=== PATIENT | male | born 1975 | race Caucasian/White ===

== ENCOUNTER 2019-01-04 08:17 | Observation (INO) | payer OTHER ==
[2019-01-01 09:49] VITALS: BMI 17.4
[2019-01-04 09:36] LABS: Hemoglobin 16.3 g/dL (14.0-18.0); Mean Corpuscular HGB CONC 34.1 g/dL (32.0-36.0); Mean Corpuscular Hemoglobin 30.7 pg (27.0-31.0); Mean Corpuscular Volume 89.9 fL (78.0-98.0); Mean Platelet Volume 6.2 fL (7.4-10.4); Platelet Count 317 thou/uL (130-400); RBC Distribution Width 12.2 % (11.5-14.5); Red Blood Cell (RBC) Count 5.31 mill/uL (4.70-6.10); White Blood Cell (WBC) Count 6.1 thou/uL (4.8-10.8)
[2019-01-04 09:55] LABS: Anion Gap 13 mmol/L (10-20); BUN (Urea Nitrogen) 16 mg/dL (8.9-20.6); Calc. Creatinine Clearance 72 mL/min (70-130); Calcium 9.5 mg/dL (7.8-10.44); Carbon Dioxide 27 mmol/L (22-29); Chloride 105 mmol/L (98-107); Estimated GFR-MDRD Greater than 90; Glucose 76 mg/dL (70-105); Potassium 3.6 mmol/L (3.5-5.1); Sodium 141 mmol/L (136-145)
[2019-01-04] MEDS ORDERED: Sodium Chloride 0.9% 10 ML ONE (11:09)
[2019-01-04] MEDS ORDERED: Fentanyl 100 MCG/2 ML VIAL ONE ×4 (11:09→14:06)
[2019-01-04] MEDS ORDERED: Promethazine HCl 25 MG/ML VIAL IM PRN ×2 (13:09→15:20)
[2019-01-04] MEDS ORDERED: Ondansetron HCl/PF 4 MG/2 ML Vial IVP PRN (13:09)
[2019-01-04] MEDS ORDERED: traMADol HCl 50 MG TAB PO PRN (15:20)
[2019-01-04] MEDS ORDERED: diphenhydrAMINE 25 MG CAP PO PRN (15:20)
[2019-01-04] MEDS ORDERED: diphenhydrAMINE 50 MG/ML VIAL IVP PRN (15:20)
[2019-01-04] MEDS ORDERED: HYDROcodone/Acetaminophen 10/325 mg Tablet PO PRN ×2 (15:20)
[2019-01-04] MEDS ORDERED: tiZANidine HCl 4 MG TAB PO PRN (15:20)
[2019-01-04] MEDS ORDERED: Promethazine HCl 12.5 MG SUPP PR PRN (15:20)
[2019-01-04] MEDS ORDERED: Ondansetron PF 4 MG/2 ML Vial IVP PRN (15:20)
[2019-01-04] MEDS ORDERED: Promethazine 25 MG TAB PO PRN (15:20)
[2019-01-04] MEDS ORDERED: Mag-Al 1200 mg/1200 mg/30 ML UDCUP PO PRN (15:20)
[2019-01-04] MEDS ORDERED: Morphine 4 MG/ML VIAL SLOW IVP PRN (15:20)
[2019-01-04] MEDS ORDERED: Milk Of Magnesia 30 ML UDCUP PO PRN (15:20)
[2019-01-04] MEDS ORDERED: Morphine 2 MG/ML SYRINGE SLOW IVP PRN (15:21)
[2019-01-04] MEDS: Sodium Chloride 0.9% 1,000 ML IV SCH (15:50)
--- NOTE | 2019-01-04 15:53 | OP ---
DATE OF PROCEDURE: 01/04/2019 TEACHER'S ASSISTANT: Camilla Pierce PA-C PROCEDURES PERFORMED: Anterior cervical diskectomy C4-C5 and C5-C6, interbody arthrodesis, intervertebral biomechanical device, local morselized autograft, demineralized bone matrix, anterior titanium instrumentation C4 to C6. DESCRIPTION OF PROCEDURE: The patient was brought to the operating room and intubated. He was positioned supine with head in modest extension on a gel-filled donut. An incision was made in the right precervical area and dissected medial to the sternocleidomastoid muscle. We identified the anterior cervical spinal, and the level was confirmed by x-ray. We placed distraction from C4 to C6 and completely decompressed the intervertebral disks at both affected levels. The bony endplates were then decorticated for the purpose of arthrodesis and appropriate-sized intervertebral biomechanical PEEK device was brought in the field. It was filled with demineralized bone matrix, local morselized autograft, and tapped in place securely at C4-C5 and C5-C6. Next, an anterior plate was brought into the field and secured to C4, C5, and C6 using two 14-mm screws at each level. The wound was then extensively irrigated and MAC hemostasis was secured and the wound was closed in anatomic layers. Job ID: [id number]
[2019-01-04] MEDS: CEFAZOLIN 2 GM in Premix Bag 1 BAG IVPB SCH (17:21)
[2019-01-04] MEDS: traMADol HCl 50 MG TAB PO PRN (17:33)
[2019-01-04] MEDS ORDERED: Dexamethasone 20 MG/5 ML VIAL ONE (20:39)
[2019-01-04] MEDS ORDERED: Lidocaine 2% PF 5 ML VIAL ONE (20:39)
[2019-01-04] MEDS ORDERED: Ketorolac Tromethamine 30 MG/ML VIAL ONE (20:39)
[2019-01-04] MEDS ORDERED: Ondansetron PF 4 MG/2 ML Vial ONE (20:39)
[2019-01-04] MEDS ORDERED: PROPOFOL 200 MG/20 ML VIAL ONE (20:39)
[2019-01-04] MEDS ORDERED: Rocuronium Bromide 10 MG/ML (10ML VIAL) ONE (20:39)
[2019-01-04] MEDS ORDERED: Glycopyrrolate 0.2 MG/ML 5 ML SYRINGE ONE (20:39)
[2019-01-04] MEDS ORDERED: diphenhydrAMINE 50 MG/ML VIAL ONE (20:39)
[2019-01-04] MEDS ORDERED: PHENYLEPHRINE-NS 100 MCG/ML 10 ML SYRINGE ONE (20:39)
[2019-01-04] MEDS ORDERED: CEFAZOLIN 2 GM in Premix Bag 1 BAG IVPB SCH (22:00)
[2019-01-05] MEDS: traMADol HCl 50 MG TAB PO PRN
[2019-01-05] MEDS: CEFAZOLIN 2 GM in Premix Bag 1 BAG IVPB SCH (01:05)
[2019-01-05] MEDS: Sodium Chloride 0.9% 1,000 ML IV SCH (06:20)
[2019-01-05 07:47] VITALS: BP 127/78; TEMP 98
[2019-01-05] MEDS ORDERED: Sodium Chloride 0.9% 10 ML ONE (11:17)
--- NOTE | 2019-01-05 11:43 | DIS ---
DATE OF ADMISSION: 01/04/2019 DATE OF DISCHARGE: 01/05/2019 The patient is a 43-year-old male, who is status post C4 to C6 ACDF. Following the surgery, he was transitioned to the floor, where his pain has been well-controlled with p.o. medications, he has been tolerating regular diet, and he is walking easily in the hallways. He has been up ambulating back and forth to the bathroom without any difficulty and we walked together in the hallways this morning. We will plan to dismiss the patient to home. I have discussed home care precautions. We will follow up with the patient in 2 weeks. He has been provided with scripts for Yoder and Zanaflex. Job ID: [id number]
--- NOTE | 2019-01-10 16:46 | EKG ---
Test Reason : PREOP Blood Pressure : / mmHG Vent. Rate : 093 BPM Atrial Rate : 093 BPM P-R Int : 124 ms QRS Dur : 078 ms QT Int : 362 ms P-R-T Axes : 066 091 047 degrees QTc Int : 450 ms Normal sinus rhythm Rightward axis Moderate voltage criteria for LVH, may be normal variant Borderline ECG No previous ECGs available Confirmed by PORTILLO HENDRICKSON (2) on 01/10/2019 4:45:47 PM Referred By: CAMACHO Confirmed By:PORTILLO HENDRICKSON
== END 2019-01-05 12:40 | disposition home or self-care (01) ==
LOC: SDC 08:17 → 3SE 14:25
PROVIDERS: ADMIT Neurological Surgery; ATTEND Neurological Surgery
PROC: 0RG20A0 Fusion of 2 or more Cervical Vertebral Joints with Interbody Fusion Device, Anterior Approach, Anterior Column, Open Approach (ICD-10-PCS; principal; 2019-01-05)
PROC: 0RT30ZZ Resection of Cervical Vertebral Disc, Open Approach (ICD-10-PCS; 2019-01-05)
DX: M47.22 Other spondylosis with radiculopathy, cervical region (principal); F31.9 Bipolar disorder, unspecified
CPT/HCPCS: 76000; 80048; 85027; 93005; 93010; 96361; 96365; 96366; C1713; C1776; G0378; J0131; J0690; J1100; J1200; J1885; J2001; J2405; J2704; J3010; J3490

== ENCOUNTER 2019-01-22 09:33 | Outpatient (CLI) | payer OTHER ==
--- NOTE | 2019-01-22 10:15 | RAD ---
XR Cerv Sp Ap Lat STANDARD History: Neck pain. M54.12 cervical radiculopathy Comparison: Cervical MRI November 05, 2017 Findings: Satisfactory appearance ACDF hardware C4-C6 without complication. No migration of the disce ctomy cage is. Mild C3/C4 disc space narrowing as well as C6/C7 disc space narrowing. Paraspinal soft tissues are unremarkable. Open-mouth odontoid view is normal. Impression: Satisfactory postoperative appearance.
== END 2019-01-22 09:34 | disposition home or self-care (01) ==
LOC: TBSIIMAG 09:33
PROVIDERS: ATTEND Neurological Surgery
DX: M54.12 Radiculopathy, cervical region (principal); Z98.1 Arthrodesis status
CPT/HCPCS: 72040

== ENCOUNTER 2019-03-02 16:18 | Outpatient (CLI) | payer OTHER ==
--- NOTE | 2019-03-02 16:54 | RAD ---
Exam: 3 views cervical spine COMPARISON: 01/22/2019 HISTORY: Follow up cervical fusion FINDINGS: On the AP projection, no malalignment On the open-mouth projection, evaluation is limited due to overlying osseous structures On the lateral projection, no prevertebral soft tissue swelling. Predental space is normal. Anterior fusion plate with transvertebral body screw at C4, C5 and C6. No perihardware lucency. Disc prosthesis at C3-4-C5 and C5-C6. IMPRESSION: Uncomplicated cervical fusion hardware. No change.
== END 2019-03-02 16:19 | disposition home or self-care (01) ==
LOC: TBSIIMAG 16:18
PROVIDERS: ATTEND Neurological Surgery
DX: M54.12 Radiculopathy, cervical region (principal); Z98.1 Arthrodesis status
CPT/HCPCS: 72040